=== PATIENT | male | born 1990 | race Caucasian/White ===

== ENCOUNTER 2018-06-02 00:58 | Emergency (ER) | payer SELFPAY ==
[2018-06-02] MEDS ORDERED: FENTANYL CITR 100 MCG/2 ML ONE (01:31)
[2018-06-02] MEDS ORDERED: ONDANSETRON 4 MG/2 ML VIAL ONE (01:32)
[2018-06-02] MEDS ORDERED: NA CHLORIDE 0.9% 1,000 ML ONE ×2 (01:32→02:30)
[2018-06-02] MEDS ORDERED: LIDOCAINE 1% W/EPI 1:100,000 MDV 50 ML VIAL ONE (02:11)
[2018-06-02] MEDS ORDERED: BUPIVACAINE 0.5% PF 10 ML VIAL ONE (02:11)
[2018-06-02] MEDS ORDERED: LIDOCAINE VISCOUS 2% SOLN 15 ML UDC ONE (02:23)
--- NOTE | 2018-06-02 04:06 | ER ---
Nurse's Notes [facility] Name: Enio Ellis Age: 27 yrs Sex: Male : 1990 Arrival Date: 06/02/2018 Time: 00:59 Bed 4 Private MD: Diagnosis: Displaced fracture of neck of right radius;Fracture of middle third of navicular [scaphoid] bone of wrist Presentation: 06/02 01:09 Presenting complaint: Patient states: I WENT TO SLAM MY DOOR AND I THINK I BROKE MY bp ARM. Transition of care: patient was not received from another setting of care. Onset of symptoms was June 02, 2018 at 00:00. Risk Assessment: Do you want to hurt yourself or someone else? Patient reports no desire to harm self or others. Initial Sepsis Screen: Does the patient meet any 2 criteria? No. Patient's initial sepsis screen is negative. Does the patient have a suspected source of infection? No. Patient's initial sepsis screen is negative. Care prior to arrival: None. 01:09 Method Of Arrival: Ambulatory bp 01:09 Acuity: PEDRO LUIS 3 bp Triage Assessment: 01:11 General: Appears in no apparent distress. comfortable, slender, Behavior is bp cooperative, appropriate for age, restless, Smells of alcohol. Pain: Complains of pain in right wrist. EENT: No deficits noted. Neuro: Level of Consciousness is awake, alert, obeys commands, Oriented to person, place, time, situation, Appropriate for age. Cardiovascular: No deficits noted. Respiratory: Airway is patent Respiratory effort is even, unlabored, Respiratory pattern is regular, symmetrical. GI: No signs and/or symptoms were reported involving the gastrointestinal system. : No signs and/or symptoms were reported regarding the genitourinary system. Derm: No deficits noted. Musculoskeletal: Circulation, motion, and sensation intact. Bony deformity noted of right wrist. Injury Description: Deformity sustained to right wrist was sustained 1-2 hours ago. Historical: - Allergies: 01:11 Iodine; bp - Home Meds: :11 None [Active]; bp - PMHx: 01:11 None; bp - Immunization history:: Adult Immunizations up to date. - Social history:: Smoking status: Patient uses tobacco products, smokes one pack cigarettes per day. Patient uses alcohol, weekly. - Ebola Screening: : Patient negative for fever greater than or equal to 101.5 degrees Fahrenheit, and additional compatible Ebola Virus Disease symptoms Patient denies exposure to infectious person Patient denies travel to an Ebola-affected area in the 21 days before illness onset No symptoms or risks identified at this time. Screenin:15 Abuse screen: Denies threats or abuse. Denies injuries from another. Nutritional bp screening: No deficits noted. Tuberculosis screening: No symptoms or risk factors identified. Fall Risk None identified. Assessment: 01:14 General: SEE TRIAGE NOTE. 27YO WM P/W R DISTAL FA DEFORMITY S/P HITTING HOUSE DOOR, PT bp REMAINS NEUROVASCULAR INTACT. 02:50 Reassessment: Patient appears in no apparent distress at this time. Patient and/or rv family updated on plan of care and expected duration. Pain level reassessed. Patient is alert, oriented x 3, equal unlabored respirations, skin warm/dry/pink. patient able to ambulate on the way to the restroom. vital signs are stable. 04:02 Reassessment: Patient appears in no apparent distress at this time. Patient and/or rv family updated on plan of care and expected duration. Pain level reassessed. Patient is alert, oriented x 3, equal unlabored respirations, skin warm/dry/pink. patient is for transfer to another facility for hand surgery. awaiting transfer orders. 04:29 Reassessment: REPORT TO ALEXSANDER DAVILA AT [facility] ER. TRANSPORT EN ROUTE. rv Vital Signs: 01:13 BP 97 / 50; Pulse 69; Resp 18; Temp 97.9; Pulse Ox 98% ; Weight 79.38 kg; Height 6 ft. bp 1 in. (185.42 cm); 02:50 BP 120 / 82; Pulse 82; Resp 16; Pulse Ox 99% on R/A; rv 04:59 BP 112 / 74; Pulse 87; Resp 16; Pulse Ox 98% on R/A; rv 06:11 BP 120 / 77; Pulse 66; Resp 16; Pulse Ox 99% on R/A; lp1 01:13 Body Mass Index 23.09 (79.38 kg, 185.42 cm) bp ED Course: 00:59 Patient arrived in ED. ds1 01:04 Jian Verma, LOLA is Primary Nurse. bp 01:06 Ceferino Alejandra PA is PHCP. cp 01:06 Quentin Prakash MD is Attending Physician. cp 01:10 Triage completed. bp 01:13 Arm band placed on left wrist. bp 01:15 Patient has correct armband on for positive identification. Bed in low position. Call bp light in reach. Side rails up X2. 01:36 X-ray completed. Portable x-ray completed in exam room. Patient tolerated procedure mh1 well. 01:37 XRAY Forearm RIGHT In Process Unspecified. EDMS 01:45 Inserted saline lock: 20 gauge in left antecubital area, using aseptic technique. rv 02:15 FINGERTIP TRACTION PLACED TO GRAVITY. bp 03:44 XRAY Wrist RIGHT 2 view In Process Unspecified. EDMS 04:00 Assist provider with reduction of right wrist using manipulation, Set up for procedure. lp1 Performed by Ceferino GUTIÉRREZ Immobilized with nhan wrap, Patient tolerated well. 04:00 Patient transferred, IV remains in place. intact. lp1 04:01 Orthoglass splint: Sugar tong splint applied on right arm. rv 04:30 Report given to ALEXSANDER DAVILA, [facility], FOR HAND SURGERY EVAL. rv 04:55 \T\0352 inititated transfer with Anny at the [facility] transfer center. \T\[id number] fidel Goodman with Dr. Prakash for patient transfer consultation. \T\0402 Administrative Approval given by Anny, the patient is to go to the ER for evaluation. Report is to be called to [phone]. Administered Medications: 01:37 Drug: Zofran 4 mg Route: IVP; Site: left antecubital; rv 01:54 Follow up: Response: No adverse reaction rv 01:37 Drug: fentaNYL (PF) 50 mcg Route: IVP; Site: left antecubital; rv 01:54 Follow up: Response: No adverse reaction rv 03:11 Follow up: Response: Pain is decreased lp1 01:37 Drug: NS 0.9% 1000 ml Route: IV; Rate: 1 bolus; Site: left antecubital; rv 03:11 Follow up: IV Status: Completed infusion lp1 02:33 Drug: NS 0.9% 1000 ml Route: IV; Rate: 125 ml/hr; Site: left antecubital; rv 04:20 Follow up: IV Status: Infusion continued upon transfer rv 03:00 Drug: Marcaine (0.5 %) 5 ml {Note: USED BY PROVIDER.} Volume: 10 ml; Route: rv Infiltration; 03:00 Drug: Lidocaine-Epinephrine -1%: (1:100,000) 5 ml {Note: USED BY PROVIDER.} Volume: 20 rv ml; Route: Infiltration; Outcome: 04:06 ER care complete, transfer ordered by . 06:14 Transferred by ground EMS lp1 06:14 Condition: good 06:14 Condition: improved 06:14 Instructed on the need for transfer. 06:16 Patient left the ED. lp1 Signatures: Dispatcher [employer] EDMS Jie Mixon mh1 Bernarda Medina1 Gita Sandoval RN RN lp1 Ceferino Alejandra PA PA cp Starr, Gregory, MD MD gs Peltier, Brian, RN RN Donna Royal Ronaldo, RN RN rv Corrections: (The following items were deleted from the chart) 01:14 01:13 BP 97 / 50; Pulse 69bpm; Resp 18bpm; Pulse Ox 98%; Temp 97.9F; Height 6 ft. 1 bp in.; bp 01:22 01:11 Allergies: No Known Allergies; bp bp
--- NOTE | 2018-06-02 04:06 | EDPHYS ---
Physician Documentation [facility] Name: Enio Ellis Age: 27 yrs Sex: Male : 1990 Arrival Date: 06/02/2018 Time: 00:59 Bed 4 Private MD: ED Physician Quentin Prakash HPI: 06/02 01:15 This 27 yrs old Male presents to ER via Ambulatory with complaints of Arm cp Injury. 01:15 The patient or guardian complains of decreased range of motion, deformity, injury, cp pain, that is acute, tenderness. The complaints affect the distal right forearm. Context: resulted from a crush injury, by a house door. Onset: The symptoms/episode began/occurred just prior to arrival. Historical: - Allergies: 01:11 Iodine; bp - Home Meds: 01:11 None [Active]; bp - PMHx: 01:11 None; bp - Immunization history:: Adult Immunizations up to date. - Social history:: Smoking status: Patient uses tobacco products, smokes one pack cigarettes per day. Patient uses alcohol, weekly. - Ebola Screening: : Patient negative for fever greater than or equal to 101.5 degrees Fahrenheit, and additional compatible Ebola Virus Disease symptoms Patient denies exposure to infectious person Patient denies travel to an Ebola-affected area in the 21 days before illness onset No symptoms or risks identified at this time. ROS: 01:20 Constitutional: Negative for body aches, chills, fever, poor PO intake. cp 01:20 Eyes: Negative for injury, pain, redness, and discharge. cp 01:20 Neck: Negative for pain with movement, pain at rest, stiffness. 01:20 Cardiovascular: Negative for chest pain. 01:20 Respiratory: Negative for cough, shortness of breath, wheezing. 01:20 Abdomen/GI: Negative for abdominal pain, nausea, vomiting, and diarrhea. 01:20 Back: Negative for pain at rest, pain with movement. 01:20 MS/extremity: Positive for injury or acute deformity, decreased range of motion, pain, swelling, tenderness, Negative for paresthesias. 01:20 Skin: Negative for cellulitis, rash. 01:20 Neuro: Negative for numbness, tingling, weakness. 01:20 All other systems are negative. Exam: 01:30 Constitutional: The patient appears in no acute distress, alert, awake, non-toxic, well cp developed, well nourished, uncomfortable. 01:30 Head/Face: Normocephalic, atraumatic. cp 01:30 Eyes: Periorbital structures: appear normal, Conjunctiva: normal, no exudate, no injection, Lids and lashes: appear normal, bilaterally. 01:30 ENT: External ear(s): are unremarkable, Nose: is normal, Mouth: is normal, Posterior pharynx: is normal, airway is patent. 01:30 Neck: ROM/movement: is normal, is supple, without pain, no range of motions limitations, no nuchal rigidity. 01:30 Chest/axilla: Inspection: normal, Palpation: is normal, no crepitus, no tenderness. 01:30 Cardiovascular: Rate: normal, Rhythm: regular, Pulses: Pulses are 2+ in right radial artery. 01:30 Respiratory: the patient does not display signs of respiratory distress, Respirations: normal, no use of accessory muscles, no retractions, no splinting, no tachypnea. 01:30 Abdomen/GI: Exam negative for discomfort, distension, guarding, Inspection: abdomen appears normal. 01:30 Back: pain, is absent, ROM is normal. 01:30 Musculoskeletal/extremity: Extremities: grossly normal except: noted in the right forearm: decreased ROM, pain, swelling, tenderness, dinner fork deformity, Perfusion: the extremity is normally perfused throughout, Sensation intact. 01:30 Skin: cellulitis, is not appreciated, no rash present. 01:30 Neuro: Orientation: to person, place \T\ time. Mentation: lucid, able to follow commands. Vital Signs: 01:13 BP 97 / 50; Pulse 69; Resp 18; Temp 97.9; Pulse Ox 98% ; Weight 79.38 kg; Height 6 ft. bp 1 in. (185.42 cm); 02:50 BP 120 / 82; Pulse 82; Resp 16; Pulse Ox 99% on R/A; rv 04:59 BP 112 / 74; Pulse 87; Resp 16; Pulse Ox 98% on R/A; rv 06:11 BP 120 / 77; Pulse 66; Resp 16; Pulse Ox 99% on R/A; lp1 01:13 Body Mass Index 23.09 (79.38 kg, 185.42 cm) bp Procedures: 04:02 Reduction: of the right wrist, using traction, manipulation, Immobilized with OCL gs splint, Patient tolerated well. Post reduction film - displacement of distal radius fragment towards volar surface. will transfer to [facility]. MDM: 01:06 Patient medically screened. cp 01:35 Differential diagnosis: dislocation, open fracture, closed fracture, contusion. cp 04:02 Data reviewed: vital signs, nurses notes. Response to treatment: the patient's symptoms gs have markedly improved after treatment, and as a result, I will transfer. 06/02 01:15 Order name: XRAY Forearm RIGHT cp 06/02 03:33 Order name: XRAY Wrist RIGHT 2 view cp 06/02 01:15 Order name: IV; Complete Time: 01:37 cp 06/02 02:07 Order name: Misc. Order: place extremity in fingertraps; Complete Time: 02:23 cp 06/02 03:40 Order name: Splint - Sugar Tong - Forearm; Complete Time: 04:01 cp 06/02 03:57 Order name: NPO; Complete Time: 04:00 cp 06/02 04:02 Order name: NPO; Complete Time: 04:03 Administered Medications: 01:37 Drug: Zofran 4 mg Route: IVP; Site: left antecubital; rv 01:54 Follow up: Response: No adverse reaction rv 01:37 Drug: fentaNYL (PF) 50 mcg Route: IVP; Site: left antecubital; rv 01:54 Follow up: Response: No adverse reaction rv 03:11 Follow up: Response: Pain is decreased lp1 01:37 Drug: NS 0.9% 1000 ml Route: IV; Rate: 1 bolus; Site: left antecubital; rv 03:11 Follow up: IV Status: Completed infusion lp1 02:33 Drug: NS 0.9% 1000 ml Route: IV; Rate: 125 ml/hr; Site: left antecubital; rv 04:20 Follow up: IV Status: Infusion continued upon transfer rv 03:00 Drug: Marcaine (0.5 %) 5 ml {Note: USED BY PROVIDER.} Volume: 10 ml; Route: rv Infiltration; 03:00 Drug: Lidocaine-Epinephrine -1%: (1:100,000) 5 ml {Note: USED BY PROVIDER.} Volume: 20 rv ml; Route: Infiltration; Disposition: 04:02 Co-signature as Attending Physician, Quentin Prakash MD. Disposition: 06/02/18 04:06 Transfer ordered to [facility]. Diagnosis are Displaced fracture of neck of right radius, Fracture of middle third of navicular [scaphoid] bone of wrist. - Reason for transfer: Higher level of care. - Accepting physician is darci. - Condition is Stable. - Problem is new. - Symptoms have improved. Signatures: Dispatcher [employer] EDAR Gita Sandoval RN RN lp1 Ceferino Alejandra PA PA cp Starr, Gregory, MD MD Jian Verma, RN RN bp Tavon Jon RN RN rv Corrections: (The following items were deleted from the chart) 01:22 01:11 Allergies: No Known Allergies; bp bp 05:00 04:06 06/02/2018 04:06 Transfer ordered to [facility]. Diagnosis is Displaced gs fracture of neck of right radius; Displaced fracture of lunate [semilunar], right wrist; Fracture of middle third of navicular [scaphoid] bone of wrist. Reason for transfer: Higher level of care. Accepting physician is darci. Condition is Stable. Problem is new. Symptoms have improved. 05:02 04:02 Reduction: of the right wrist, using traction, manipulation, Immobilized with OCL splint, Patient tolerated well. Post reduction film - carpel bone dislocation will transfer to [facility] hand. 06:16 05:00 06/02/2018 04:06 Transfer ordered to [facility]. Diagnosis is Displaced lp1 fracture of neck of right radius; Fracture of middle third of navicular [scaphoid] bone of wrist. Reason for transfer: Higher level of care. Accepting physician is darci. Condition is Stable. Problem is new. Symptoms have improved.
--- NOTE | 2018-06-02 08:26 | RAD REPORT ---
EXAM DESCRIPTION: RAD - Forearm Right - 06/02/2018 1:41 am CLINICAL HISTORY: Right arm pain status post injury FINDINGS: An impacted comminuted moderately displaced fracture involves the distal radius with angul ation present at the fracture site. No dislocation is noted
--- NOTE | 2018-06-02 08:31 | RAD REPORT ---
EXAM DESCRIPTION: RAD - Wrist Right 2 View - 06/02/2018 3:45 am CLINICAL HISTORY: Radial fracture FINDINGS: Better alignment of the fracture fragments of the distal radius are noted. No dislocation is seen A nondisplaced fracture involves the mid scaphoid
== END 2018-06-02 06:16 | disposition short-term general hospital (02) ==
LOC: ER 00:58
PROC: 0PSHXZZ Reposition Right Radius, External Approach (ICD-10-PCS; principal; 2018-06-02)
DX: F17.210 Nicotine dependence, cigarettes, uncomplicated (principal); Z91.048 Other nonmedicinal substance allergy status; S52.131A Displaced fracture of neck of right radius, initial encounter for closed fracture; S62.021A Displaced fracture of middle third of navicular [scaphoid] bone of right wrist, initial encounter for closed fracture; X58.XXXA Exposure to other specified factors, initial encounter; Y93.9 Activity, unspecified; Y92.9 Unspecified place or not applicable; Y99.9 Unspecified external cause status
CPT/HCPCS: 96361; 96374; 96375; 99285; J2405; J3010; J7030

== ENCOUNTER 2018-12-21 19:39 | Emergency (ER) | payer SELFPAY ==
[2018-12-21] MEDS ORDERED: ONDANSETRON 4 MG/2 ML VIAL ONE (20:14)
[2018-12-21] MEDS ORDERED: NA CHLORIDE 0.9% 1,000 ML ONE (20:14)
--- NOTE | 2018-12-21 20:18 | RAD REPORT ---
EXAM DESCRIPTION: RAD - Neck Soft Tissue - 12/21/2018 8:11 pm CLINICAL HISTORY: Foreign body ingestion COMPARISON: None. TECHNIQUE: Single lateral soft tissue neck exam performed. FINDINGS: No prevertebral soft tissue thickening. No foreign body or abnormal air density. Epiglot tis is normal. Tonsillar and adenoid tissue within normal limits as well. No disk or bony abnormali ty. IMPRESSION: No radiopaque foreign body identifiable. No suspicious finding noted.
--- NOTE | 2018-12-21 20:19 | RAD REPORT ---
EXAM DESCRIPTION: RAD - Chest Single View - 12/21/2018 8:11 pm CLINICAL HISTORY: Foreign body ingestion, difficulty swallowing, throat pain COMPARISON: None. TECHNIQUE: AP portable chest image was obtained 2008 hours . FINDINGS: Lungs are clear. No air trapping or tracheal shift. Heart and vasculature are normal. No m easurable pleural effusion and no pneumothorax. No acute bony abnormality seen. No ingested foreign b simone identifiable. IMPRESSION: No foreign body identifiable. No acute chest finding.
[2018-12-21 20:28] LABS: Absolute Lymphocytes (CBC) 1.8 K/uL (0.7-4.9); Absolute Monocytes 0.4 K/uL (0.1-1.3); Absolute Neutrophil 4.3 K/uL (1.8-8.0); Basophils % 0.9 % (0-1.3); Eosinophils % 5.9 % (0-4.4); Hematocrit 43.2 % (39.6-49.0); Lymphocytes % 26.2 % (15.3-44.8); MPV 8.3 fL (7.6-11.3); Monocytes % 5.8 % (3.3-12.3); RBC Red Blood Cell Count 4.49 M/uL (4.33-5.43)
[2018-12-21 20:55] LABS: Albumin 3.9 g/dL (3.4-5.0); Bilirubin Total 0.4 mg/dL (0.2-1.0); Potassium 3.9 mmol/L (3.5-5.1); Protein, Total 7.2 g/dL (6.4-8.2)
--- NOTE | 2018-12-21 21:24 | EDPHYS ---
Physician Documentation [facility] Name: Enio Ellis Age: 28 yrs Sex: Male : 1990 Arrival Date: 12/21/2018 Time: 19:41 Bed 3 Private MD: ED Physician Ceferino Power HPI: 12/21 20:00 This 28 yrs old Male presents to ER via Ambulatory with complaints of Foreign cp Body In Throat. 20:00 The patient presents with a foreign body sensation in the throat. cp 20:00 Onset: The symptoms/episode began/occurred 1 hour(s) ago. Associated signs and cp symptoms: Pertinent positives: intolerant of po fluids, Pertinent negatives chest pain, cough, fever. 20:00 Severity of symptoms: in the emergency department the symptoms are unchanged, despite cp home interventions. Patient reports he was eating homemade chicken soup and believes he swallowed chicken bone that feels stuck in throat. Historical: - Allergies: 19:55 Iodine; fc - Home Meds: 19:55 None [Active]; fc - PMHx: 19:55 None; fc - PSHx: 19:55 Tonsillectomy; fc - Immunization history:: Last tetanus immunization: up to date Flu vaccine is not up to date. - Social history:: Smoking status: Patient uses tobacco products, smokes one pack cigarettes per day. Patient uses alcohol, occasionally. Patient/guardian denies using street drugs. - Ebola Screening: : Patient negative for fever greater than or equal to 101.5 degrees Fahrenheit, and additional compatible Ebola Virus Disease symptoms Patient denies exposure to infectious person Patient denies travel to an Ebola-affected area in the 21 days before illness onset. ROS: 20:05 Constitutional: Negative for body aches, chills, fever, poor PO intake. cp 20:05 Eyes: Negative for injury, pain, redness, and discharge. cp 20:05 ENT: Positive for difficulty swallowing, Negative for drainage from ear(s), ear pain, difficulty handling secretions, hoarseness. 20:05 Cardiovascular: Negative for chest pain, edema, palpitations. 20:05 Respiratory: Negative for cough, shortness of breath, wheezing. 20:05 Abdomen/GI: Negative for vomiting, diarrhea, constipation, black/tarry stool, rectal bleeding. 20:05 Skin: Negative for cellulitis, rash. 20:05 Neuro: Negative for altered mental status, headache, weakness. 20:05 All other systems are negative. Exam: 20:10 Constitutional: The patient appears in no acute distress, alert, awake, cp non-diaphoretic, non-toxic, well developed, well nourished. 20:10 Head/Face: Normocephalic, atraumatic. cp 20:10 Eyes: Pupils equal round and reactive to light, extra-ocular motions intact. Lids and cp lashes normal. Conjunctiva and sclera are non-icteric and not injected. Cornea within normal limits. Periorbital areas with no swelling, redness, or edema. 20:10 ENT: External ear(s): are unremarkable, Ear canal(s): are normal, clear, TM's: dullness, bilaterally, Nose: is normal, Mouth: Lips: moist, Oral mucosa: pink and intact, moist, Posterior pharynx: Airway: no evidence of obstruction, patent, Tonsils: are normal in appearance, Uvula: midline, swelling, is not appreciated, erythema, is not appreciated, exudate, is not appreciated, Voice: is normal. 20:10 Neck: ROM/movement: is normal, is supple, no range of motions limitations, no meningismus, no nuchal rigidity. 20:10 Chest/axilla: Inspection: normal, Palpation: is normal, no crepitus, no tenderness. 20:10 Cardiovascular: Rate: normal, Rhythm: regular. 20:10 Respiratory: the patient does not display signs of respiratory distress, Respirations: normal, no use of accessory muscles, no retractions, no splinting, no tachypnea, labored breathing, is not present, Breath sounds: are clear throughout, no decreased breath sounds, no stridor, no wheezing. 20:10 Abdomen/GI: Inspection: abdomen appears normal, Bowel sounds: active, all quadrants, Palpation: abdomen is soft and non-tender, in all quadrants. 20:10 Skin: cellulitis, is not appreciated, no rash present. 20:10 Neuro: Orientation: to person, place \T\ time. Mentation: is normal, Cerebellar function: cp is grossly normal, Motor: moves all fours, strength is normal, Sensation: is normal. Vital Signs: 19:45 BP 131 / 90; Pulse 85; Resp 18; Temp 98.5(O); Pulse Ox 98% on R/A; Weight 74.84 kg (R); fc Height 6 ft. 1 in. (185.42 cm) (R); Pain 3/10; 20:51 BP 126 / 74; Pulse 79; Resp 16; Pulse Ox 99% on R/A; mt 19:45 Body Mass Index 21.77 (74.84 kg, 185.42 cm) fc MDM: 19:52 Patient medically screened. cp 20:30 Physician consultation: Vin Macias MD was called at 20:30, was contacted at 20:30, regarding patient's condition, will see patient shortly. 21:22 Data reviewed: vital signs, nurses notes, lab test result(s), radiologic studies, plain cp films, and as a result, I will admit patient. 21:22 Counseling: I had a detailed discussion with the patient and/or guardian regarding: the cp historical points, exam findings, and any diagnostic results supporting the discharge/admit diagnosis, lab results, radiology results. 12/21 19:57 Order name: CBC with Diff; Complete Time: 21:21 cp 12/21 19:57 Order name: PT-INR; Complete Time: 21:21 cp 12/21 19:56 Order name: XRAY Chest (1 view); Complete Time: 20:25 cp 12/21 20:25 Interpretation: Report review. cp 12/21 19:56 Order name: XRAY Neck Soft Tissue: AP and lateral; Complete Time: 20:25 cp 12/21 20:25 Interpretation: Report reviewed. cp 12/21 19:57 Order name: Ptt, Activated; Complete Time: 21:21 cp 12/21 19:57 Order name: CMP; Complete Time: 21:21 cp 12/21 19:57 Order name: IV; Complete Time: 20:26 cp 12/21 20:32 Order name: NPO; Complete Time: 20:37 cp Administered Medications: 20:26 Drug: NS 0.9% 1000 ml Route: IV; Rate: 1 bolus; Site: left antecubital; ea 21:12 Follow up: Response: No adverse reaction; IV Status: Completed infusion; IV Intake: ea 1000ml 20:26 Drug: Zofran 4 mg Route: IVP; Site: left antecubital; ea 21:12 Follow up: Response: No adverse reaction; Nausea is decreased ea Disposition: 12/22 08:54 Co-signature as Attending Physician, Ceferino Power MD I agree with the assessment and [facility] plan of care. Disposition: 12/21/18 21:23 Hospitalization ordered by Vin Macias for Observation. Preliminary diagnosis is Esophageal obstruction - Chicken bone. - Bed requested for DAY SURGERY OTHER. - Status is Observation. fc - Condition is Stable. - Problem is new. - Symptoms are unchanged. UTI on Admission? No Signatures: Dispatcher [employer] EDSC Ceferino Power MD MD cha Chretien, Felicia RN RN Ceferino Alejandra PA PA cp Tressa Lauren RN RN ea Corrections: (The following items were deleted from the chart) 12/21 20:26 20:26 Fluid Challenge ordered. cp cp 21:37 21:23 Hospitalization Ordered by Vin Macias MD for Observation. Preliminary fc diagnosis is Esophageal obstruction - Chicken bone. Bed requested for DAY SURGERY OTHER. Status is Observation. Condition is Stable. Problem is new. Symptoms are unchanged. UTI on Admission? No. cp
--- NOTE | 2018-12-21 21:24 | ER ---
Nurse's Notes [facility] Name: Enio Ellis Age: 28 yrs Sex: Male : 1990 Arrival Date: 12/21/2018 Time: 19:41 Bed 3 Private MD: Diagnosis: Esophageal obstruction-Chicken bone Presentation: 12/21 19:45 Presenting complaint: Patient states: that he was eating chicken soup and now has a fc chicken bone stuck in his throat. Complaining of shortness of breath but is able to swallow own secretions. Transition of care: patient was not received from another setting of care. Onset of symptoms was December 21, 2018 at 18:45. Risk Assessment: Do you want to hurt yourself or someone else? Patient reports no desire to harm self or others. Initial Sepsis Screen: Does the patient meet any 2 criteria? No. Patient's initial sepsis screen is negative. Does the patient have a suspected source of infection? No. Patient's initial sepsis screen is negative. Care prior to arrival: None. 19:45 Method Of Arrival: Ambulatory 19:45 Acuity: PEDRO LUIS 3 Triage Assessment: 19:45 General: Appears uncomfortable, slender, Behavior is calm, cooperative, appropriate for age. Pain: Complains of pain in neck Pain currently is 3 out of 10 on a pain scale. Quality of pain is described as dull, Pain began 1 hour ago. Is continuous. EENT: Reports chicken bone stuck in his throat. Neuro: Level of Consciousness is awake, alert, obeys commands, Oriented to person, place, time, situation, Appropriate for age. Cardiovascular: No deficits noted. Respiratory: No deficits noted. GI: No deficits noted. : No deficits noted. Derm: Skin is pink, warm \\T\\ dry. Musculoskeletal: Circulation, motion, and sensation intact. Capillary refill < 3 seconds, Range of motion: intact in all extremities. Historical: - Allergies: 19:55 Iodine; fc - Home Meds: 19:55 None [Active]; fc - PMHx: 19:55 None; fc - PSHx: 19:55 Tonsillectomy; fc - Immunization history:: Last tetanus immunization: up to date Flu vaccine is not up to date. - Social history:: Smoking status: Patient uses tobacco products, smokes one pack cigarettes per day. Patient uses alcohol, occasionally. Patient/guardian denies using street drugs. - Ebola Screening: : Patient negative for fever greater than or equal to 101.5 degrees Fahrenheit, and additional compatible Ebola Virus Disease symptoms Patient denies exposure to infectious person Patient denies travel to an Ebola-affected area in the 21 days before illness onset. Screenin:55 Abuse screen: Denies threats or abuse. Nutritional screening: No deficits noted. fc Tuberculosis screening: No symptoms or risk factors identified. Fall Risk None identified. Assessment: 20:18 General: Appears in no apparent distress. Behavior is calm, cooperative, appropriate ea for age. Pain: Denies pain. Neuro: Level of Consciousness is awake, alert, obeys commands, Oriented to person, place, time, situation. Cardiovascular: Patient's skin is warm and dry. Respiratory: Airway is patent Respiratory effort is even, unlabored, Respiratory pattern is regular, symmetrical. GI: Abdomen is flat, non-distended. : No signs and/or symptoms were reported regarding the genitourinary system. EENT: Reports "there is a bone stuck in my throat". Derm: Skin is pink, warm \\T\\ dry. 21:11 Reassessment: Patient and/or family updated on plan of care and expected duration. Pain ea level reassessed. Patient is alert, oriented x 3, equal unlabored respirations, skin warm/dry/pink. 21:22 Reassessment: Patient and/or family updated on plan of care and expected duration. Pain ea level reassessed. Patient is alert, oriented x 3, equal unlabored respirations, skin warm/dry/pink. Pt taken to endoscopy, report given to Nurse. Pt taken via wheelchair tolerating well. Vital Signs: 19:45 BP 131 / 90; Pulse 85; Resp 18; Temp 98.5(O); Pulse Ox 98% on R/A; Weight 74.84 kg (R); fc Height 6 ft. 1 in. (185.42 cm) (R); Pain 3/10; 20:51 BP 126 / 74; Pulse 79; Resp 16; Pulse Ox 99% on R/A; mt 19:45 Body Mass Index 21.77 (74.84 kg, 185.42 cm) ED Course: 19:41 Patient arrived in ED. am2 19:45 Arm band placed on Patient placed in an exam room, on a stretcher. fc 19:52 Ceferino Alejandra PA is PHCP. cp 19:52 Ceferino Power MD is Attending Physician. cp 19:53 Triage completed. fc 19:55 Patient has correct armband on for positive identification. Placed in gown. Bed in low fc position. Call light in reach. 20:03 Tressa Lauren, LOLA is Primary Nurse. ea 20:12 XRAY Chest (1 view) In Process Unspecified. EDMS 20:12 XRAY Neck Soft Tissue: AP and lateral In Process Unspecified. EDMS 20:26 Inserted saline lock: 20 gauge in left antecubital area, using aseptic technique. Blood ea collected. 21:22 Vin Macias MD is Hospitalizing Provider. cp 21:34 No provider procedures requiring assistance completed. ea 21:36 Patient admitted, IV remains in place. fc Administered Medications: 20:26 Drug: NS 0.9% 1000 ml Route: IV; Rate: 1 bolus; Site: left antecubital; ea 21:12 Follow up: Response: No adverse reaction; IV Status: Completed infusion; IV Intake: ea 1000ml 20:26 Drug: Zofran 4 mg Route: IVP; Site: left antecubital; ea 21:12 Follow up: Response: No adverse reaction; Nausea is decreased ea Intake: 21:12 IV: 1000ml; Total: 1000ml. ea Outcome: 21:22 Condition: stable ea 21:22 Instructed on the need for admit. 21:23 Decision to Hospitalize by Provider. cp 21:35 Admitted to OR accompanied by nurse, via wheelchair, with chart, Report called to fc given to Mary Beltran RN at bedside 21:35 Condition: good 21:35 Discharge instructions given to patient, family, Instructed on the need for admit, Demonstrated understanding of instructions. 21:37 Patient left the ED. fc Signatures: Dispatcher [employer] EDDana Gan, RN RN Ceferino Alejandra PA PA cp Moreno, Amanda am2 Thompson, Moriah oh Tressa Lauren RN RN ea Corrections: (The following items were deleted from the chart) 21:35 21:22 Reassessment: Pt taken to endoscopy, report given to Nurse. Pt taken via ea wheelchair tolerating well. ea
[2018-12-21] MEDS ORDERED: PROPOFOL 200 MG/20 ML VIAL IV ONE (21:37)
[2018-12-21] MEDS ORDERED: SUCCINYLCHOLINE 20 MG/ML (10 ML) IV ONE (21:39)
[2018-12-21] MEDS ORDERED: LIDOCAINE 1% MPF 2 ML AMPULE ONE (21:51)
[2018-12-21] MEDS ORDERED: Ringers Lactate 1,000 ML IV ONE (21:51)
== END 2018-12-21 23:20 | disposition home or self-care (01) ==
LOC: ER 19:39
DX: K22.2 Esophageal obstruction (principal); K22.8 Other specified diseases of esophagus
CPT/HCPCS: 36415; 70360; 71045; 80053; 85025; 85610; 85730; 96361; 96374; 99285; J0330; J2001; J2405; J2704; J7030